=== PATIENT | female | born 1995 | race Caucasian/White ===

== ENCOUNTER 2016-08-01 18:48 | Emergency (ER) | payer OTHER ==
--- NOTE | 2016-08-01 19:29 | ED NURSING NOTES ---
Clinical Report - Nurses [facility] [place] [address] 08/01/2016 18:51 Patient: CARLIE FRIEDMAN TRIAGE Triage time 18:55 Aug 01 2016. Acuity: LEVEL 3. Chief Complaint: PELVIC PAIN and VAGINAL BLEED. 19:02 08/01/16. SEPSIS SCREEN: Sepsis Screen: negative. Negative (no infection suspected/documented). RODRIGO COMA SCORE: Wheelwright Coma Scale: 15- eyes open spontaneously (4); best verbal response- oriented x 4 (5); best motor response- obeys commands (6). --19:02 Stephanie Christianson 18:55 08/01/16. BP: 131/71. HR: 105. RR: 20. O2 saturation: 100% on room air. Temp: 99 F (oral). Pain level now: 5/10. --19:02 Stephanie Christianson. Weight: 40.8 kg stated. Height/Length: 60 inches Per Patient. BMI: 17.6. --19:00 Stephanie Christianson. Medications Depo-Provera Intramuscular. --18:59 Stephanie Christianson. Medication/allergy information source: the patient. --19:02 Stephanie Christianson. Allergies No Known Drug Allergy. --18:59 Stephanie Christianson. History Arrived by private vehicle. Historian: patient. Accompanied by family. [facility] ( Patient reports pelvic pain and cramping for three days. She states it got worse today. She reports some spotting that started pink and now is a dark brown blood. She reports use of the depo provera shot but states she has never had spotting like this in the past.). 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 PAST MEDICAL HX: Immunizations: up-to-date. Last normal menstrual period- off and on periods between lapses in depo shot. Uses depo injections. SOCIAL HX: Light tobacco smoker (cigarette)- less than 1/2 a pack per day. History of drug use: marijuana. No alcohol use. No infectious disease exposure. ABUSE ASSESSMENT: No report of abuse. SELF HARM ASSESSMENT: A self harm assessment was performed. The patient answered "no" to the question "Have you recently felt down, depressed, or hopeless?", "Have you noticed less interest or pleasure in doing things?", "Do you have thoughts of harming or killing yourself?", "Are you here because you tried to hurt yourself?", "Have you ever tried to hurt yourself before today?", "Have you recently had thoughts about harming or killing others?" and "Do you have any dangerous items in your possession?". FALL RISK ASSESSMENT: Fall risk assessment completed. No fall risk identified. NUTRITIONAL RISK ASSESSMENT: The nutritional risk assessment revealed no deficiencies. FUNCTIONAL ASSESSMENT: Functional assessment: no impairments noted. LEARNING NEEDS ASSESSMENT: The learning needs assessment revealed no barriers. SKIN INTEGRITY ASSESSMENT: Skin integrity risk assessment completed. No skin integrity risk identified. --19:02 Stephanie Christianson. PROBLEMS: Vaginal Bleeding. Asthma. --18:59 Stephanie Christianson. ADDITIONAL SURGERIES: no known surgeries. Interventions ID band on patient. To treatment room. --19:02 Stephanie Christianson. PHYSICAL ASSESSMENT 19:02 08/01/16. Ambulatory to room. GENERAL / NEURO / PSYCH: Alert. Oriented X 4. Appears in no acute distress. HEENT: Mucous membranes are pink. RESPIRATORY: Respirations not labored. CVS: Cardiac rhythm: sinus tachycardia; (105). GI / : Abdomen soft. Abdominal tenderness in the left lower quadrant and lower abdomen. Scant vaginal bleeding present. SKIN: Skin is warm and dry. --19:02 Stephanie Christianson. NURSING PROGRESS NOTES Pulse oximeter and NIBP monitor placed on patient; monitor alarms on. Patient gowned. Warming measures: blanket applied. Reassurance given to the patient. Two patient identifiers checked. Call light placed in reach. Side rails up x 1. Bed placed in lowest position. Brakes of bed on. Patient ready for evaluation- chart flagged and ED physician notified. --19:03 Stephanie Christianson 19:03 08/01/2016 Site #1 started via IV in the right antecubital space with an 20g angiocath, with aseptic technique and good blood return; one attempt. Blood drawn: rainbow set. Labeled in the presence of the patient and sent to the lab. Saline lock flushed with 10 mL saline. --19:03 Stephanie Christianson Patient ID band checked for patient name and birthdate: patient confirmed. Instructions provided to collect clean catch urine and patient verbalized understanding. Clean catch urine collected with return of yellow-colored clear urine; sample sent to lab for urinalysis, culture and HCG. Specimen labeled in the presence of the patient. --19:10 Stephanie Christianson PELVIC EXAM: Pelvic exam performed by PA. Assisted by one nurse. Preparation: pelvic tray; patient placed in lithotomy position. Procedure: speculum and bimanual exam. Light amount of vaginal bleeding noted. Specimens collected and sent to lab: GC and chlamydia. Status post-procedure: she was stable. Total time of assist / procedure: 15 minutes. --19:40 Stephanie Christianson. DISPOSITION / DISCHARGE 19:45. No learning barriers present. Discharge instructions provided and reviewed with the patient. Reviewed medication(s) side effects, precautions, dosing and course information. Prescription(s) given to the patient. Patient verbalized understanding. Written instructions provided in Fijian. The patient was discharged home and accompanied by spouse. She left the Emergency Department ambulatory and via private vehicle. Spouse driving. Medication list reviewed and validated. --19:56 Mya Yoo R.N. 19:52 08/01/16. BP: 104/53. HR: 72. RR: 18. O2 saturation: 100%. Temp: deferred. Pain level now: 06/18. 18:55 08/01/16. BP: 131/71. HR: 105. RR: 20. O2 saturation: 100% on room air. Temp: 99 F (oral). Pain level now: 08/18. --19:56 Mya Yoo R.N. Locked/Released at 08/01/2016 19:56 by Mya Yoo R.N.
--- NOTE | 2016-08-01 19:29 | ED CLINICAL REPORT ---
Clinical Report - Physicians/Mid Levels [facility] [address] [place] [address] 08/01/2016 18:51 Patient: CARLIE FRIEDMAN Time Seen: 19:03; initial patient contact. Arrived- By private vehicle. Historian- patient. HISTORY OF PRESENT ILLNESS Chief Complaint: PELVIC PAIN and VAGINAL BLEEDING. (Patient reports pelvic pain and cramping for three days. She states it got worse today. She reports some spotting that started pink and now is a dark brown blood. She reports use of the depo provera shot but states she has never had spotting like this in the past.). prior to the depo, she had the nexplanon for 2+ years and just had it removed and the shot given a few weeks ago.). Still present. The symptoms are described as mild. The patient has had mild left-sided pelvic pain (2 days ago). She has had abnormal bleeding. No vaginal pain, pain with urination, urinary frequency, urgency of urination or hematuria. She has had irregular periods. Sexually active. control measures utilized (depo). Similar symptoms previously: None. Recent medical care: Not recently seen/assessed. REVIEW OF SYSTEMS No nausea, vomiting or diarrhea. All systems otherwise negative, except as recorded above. PAST HISTORY See nurses notes. Additional Surgeries: no known surgeries. Medications: Depo-Provera Intramuscular. Allergies: No Known Drug Allergy. SOCIAL HISTORY Light tobacco smoker (cigarette)- less than 1/2 a pack per day. History of drug use: marijuana. No alcohol use. FAMILY HISTORY Negative. ADDITIONAL NOTES The nursing notes have been reviewed with agreement regarding the chief complaint, HPI, ROS, PMH and patient medications and allergies. PHYSICAL EXAM Vital Signs: 08/01/2016 19:52 BP: 104/53. HR: 72. RR: 18. O2 saturation: 100%. Pain level now: 06/18. 08/01/2016 18:55 BP: 131/71. HR: 105. RR: 20. O2 saturation: 100%. Temp: 99 F. Pain level now: 08/18. Have been reviewed. Appearance: Alert. Oriented X3. No acute distress. Neck: Neck supple. CVS: Heart sounds normal. Respiratory: No respiratory distress. Breath sounds normal. Abdomen: Soft and nontender. Bowel sounds normal. No organomegaly. No mass. Back: No CVA tenderness. : External inspection normal. Speculum exam normal. Slight vaginal bleeding, consisting of dark blood, via the cervical os. No cervical dilation. No tissue present. Bimanual exam normal. No tenderness present on bimanual exam. No uterine tenderness. No tenderness with movement of the cervix. No adnexal mass/fullness. Extremities: No lower extremity edema. LABS, X-RAYS, AND EKG Laboratory Tests: Urine: (WALLY: 08/01/2016 19:10) ( [facility] [place] [place]:23[place] Final results Test Result Flag Units (Reference) URINE NEGATIVE CBC w Diff: (WALLY: 08/01/2016 19:05) ( [facility] [place] 08/01/[place] 19:19) Final results Test Result Flag Units (Reference) WHITE BLOOD COUNT 11.9 H K/uL (4.5-11.5) RED BLOOD COUNT 3.79 L M/uL (4.00-5.20) HEMOGLOBIN 12.6 gm/dL (12.0-16.0) HEMATOCRIT 37.2 % (36.0-46.0) MEAN CELL VOLUME 98 fL (80-100) MEAN CORPUSCULAR HGB 33 pg (26-34) MEAN CORPUSCULAR HGB CONC 34 g/dL (31-37) RED CELL DISTRIBUTION WIDTH 12.0 % (11.6-14.8) PLATELET COUNT 226 K/uL (150-400) NEUTROPHIL % 71.1 % (50-75) LYMPH % 24.4 L % (25-40) MONO % 3.8 % (3-14) EOSINOPHIL % 0.3 % (0-4) BASOPHIL % 0.4 % (0-2) . PROGRESS AND PROCEDURES Course of Care: Patient is stable. Symptoms better. CLINICAL IMPRESSION Mild dysfunctional uterine bleeding. INSTRUCTIONS No restrictions to activity. Drink plenty of fluids. No sexual contact today. Warnings: Further evaluation is necessary. It is very important to follow up with a physician. GENERAL WARNINGS: Return or contact your physician immediately if your condition worsens or changes unexpectedly, if not improving as expected, or if other problems arise. Your Current Medications: CONTINUE TAKING THE FOLLOWING MEDICATIONS: Depo-Provera Intramuscular. Prescription Medications: Motrin 600 mg tablets: take 1 tablet orally every 8 hours as needed for pain. Dispense twenty (20). No refill. Substitution is permissible. Follow-up: Call your doctor in 3 days for results of cultures. Follow up with your doctor if not better. Understanding of the discharge instructions verbalized by patient. (Electronically signed by Yessenia Segura PA-C 08/01/2016 20:11)
--- NOTE | 2016-08-01 19:29 | ED ORDER SUMMARY ---
..... Patient: CARLIE FRIEDMAN OrderSheet [facility] VisitID: [id number] [place] [address] 20y, F Registration Date/Time: 08/01/2016 ORDER SHEET Weight: 40.8 kg (stated) Allergies: No Known Drug Allergy GENERAL ORDERS: Urine Urgent (19:03 08/01/2016 Nissa BOWENS) (Ack 19:09 IJurca ER Tech1) (Sent 19:10 IJurca ER Tech1) (19:18 TLewis R.N.) CBC w Diff Urgent (19:03 08/01/2016 Nissa BOWENS) (Ack 19:09 IJurca ER Tech1) (Sent 19:10 IJurca ER Tech1) (19:18 TLewis R.N.) Culture, Genital (Cervix) Urgent (19:28 08/01/2016 Nissa BOWENS) (Ack 19:41 IJurca ER Tech1) (Sent 19:41 IJurca ER Tech1) (19:44 ALawrence ER Tech1) GC/Chlamydia (Cervix) (swab) Urgent (19:28 08/01/2016 Nissa BOWENS) (Ack 19:41 IJurca ER Tech1) (Sent 19:41 IJurca ER Tech1) (19:44 ALawrence ER Tech1) MEDICATION ORDERS: IV FLUIDS: ORDER SHEET NOTES: [Electronically signed by Mya Yoo R.N. (19:56 08/01/2016)] [Electronically signed by Yessenia Segura PA-C (20:11 08/01/2016)] [Electronically locked/signed by Mya Yoo R.N. (19:56 08/01/2016)]
--- NOTE | 2016-08-01 19:29 | ED CLINICAL REPORT ---
Clinical Report - Physicians/Mid Levels [facility] [address] [place] [address] 08/01/2016 18:51 Patient: CARLIE FRIEDMAN Time Seen: 19:03; initial patient contact. Arrived- By private vehicle. Historian- patient. HISTORY OF PRESENT ILLNESS Chief Complaint: PELVIC PAIN and VAGINAL BLEEDING. (Patient reports pelvic pain and cramping for three days. She states it got worse today. She reports some spotting that started pink and now is a dark brown blood. She reports use of the depo provera shot but states she has never had spotting like this in the past.). prior to the depo, she had the nexplanon for 2+ years and just had it removed and the shot given a few weeks ago.). Still present. The symptoms are described as mild. The patient has had mild left-sided pelvic pain (2 days ago). She has had abnormal bleeding. No vaginal pain, pain with urination, urinary frequency, urgency of urination or hematuria. She has had irregular periods. Sexually active. control measures utilized (depo). Similar symptoms previously: None. Recent medical care: Not recently seen/assessed. REVIEW OF SYSTEMS No nausea, vomiting or diarrhea. All systems otherwise negative, except as recorded above. PAST HISTORY See nurses notes. Additional Surgeries: no known surgeries. Medications: Depo-Provera Intramuscular. Allergies: No Known Drug Allergy. SOCIAL HISTORY Light tobacco smoker (cigarette)- less than 1/2 a pack per day. History of drug use: marijuana. No alcohol use. FAMILY HISTORY Negative. ADDITIONAL NOTES The nursing notes have been reviewed with agreement regarding the chief complaint, HPI, ROS, PMH and patient medications and allergies. PHYSICAL EXAM Vital Signs: 08/01/2016 19:52 BP: 104/53. HR: 72. RR: 18. O2 saturation: 100%. Pain level now: 06/18. 08/01/2016 18:55 BP: 131/71. HR: 105. RR: 20. O2 saturation: 100%. Temp: 99 F. Pain level now: 08/18. Have been reviewed. Appearance: Alert. Oriented X3. No acute distress. Neck: Neck supple. CVS: Heart sounds normal. Respiratory: No respiratory distress. Breath sounds normal. Abdomen: Soft and nontender. Bowel sounds normal. No organomegaly. No mass. Back: No CVA tenderness. : External inspection normal. Speculum exam normal. Slight vaginal bleeding, consisting of dark blood, via the cervical os. No cervical dilation. No tissue present. Bimanual exam normal. No tenderness present on bimanual exam. No uterine tenderness. No tenderness with movement of the cervix. No adnexal mass/fullness. Extremities: No lower extremity edema. LABS, X-RAYS, AND EKG Laboratory Tests: Urine: (WALLY: 08/01/2016 19:10) ( [facility] [place] [place] 19:23[facility] Final results Test Result Flag Units (Reference) URINE NEGATIVE CBC w Diff: (WALLY: 08/01/2016 19:05) ( [facility] [place] 08/01/2016 19:19) Final results Test Result Flag Units (Reference) WHITE BLOOD COUNT 11.9 H K/uL (4.5-11.5) RED BLOOD COUNT 3.79 L M/uL (4.00-5.20) HEMOGLOBIN 12.6 gm/dL (12.0-16.0) HEMATOCRIT 37.2 % (36.0-46.0) MEAN CELL VOLUME 98 fL (80-100) MEAN CORPUSCULAR HGB 33 pg (26-34) MEAN CORPUSCULAR HGB CONC 34 g/dL (31-37) RED CELL DISTRIBUTION WIDTH 12.0 % (11.6-14.8) PLATELET COUNT 226 K/uL (150-400) NEUTROPHIL % 71.1 % (50-75) LYMPH % 24.4 L % (25-40) MONO % 3.8 % (3-14) EOSINOPHIL % 0.3 % (0-4) BASOPHIL % 0.4 % (0-2) . PROGRESS AND PROCEDURES Course of Care: Patient is stable. Symptoms better. CLINICAL IMPRESSION Mild dysfunctional uterine bleeding. INSTRUCTIONS No restrictions to activity. Drink plenty of fluids. No sexual contact today. Warnings: Further evaluation is necessary. It is very important to follow up with a physician. GENERAL WARNINGS: Return or contact your physician immediately if your condition worsens or changes unexpectedly, if not improving as expected, or if other problems arise. Your Current Medications: CONTINUE TAKING THE FOLLOWING MEDICATIONS: Depo-Provera Intramuscular. Prescription Medications: Motrin 600 mg tablets: take 1 tablet orally every 8 hours as needed for pain. Dispense twenty (20). No refill. Substitution is permissible. Follow-up: Call your doctor in 3 days for results of cultures. Follow up with your doctor if not better. Understanding of the discharge instructions verbalized by patient. (Electronically signed by Yessenia Segura PA-C 08/01/2016 20:11)
--- NOTE | 2016-08-01 19:29 | ED ORDER SUMMARY ---
..... Patient: CARLIE FRIEDMAN OrderSheet [facility] VisitID: [id number] [place] [address] 20y, F Registration Date/Time: 08/01/2016 ORDER SHEET Weight: 40.8 kg (stated) Allergies: No Known Drug Allergy GENERAL ORDERS: Urine Urgent (19:03 08/01/2016 Nissa BOWENS) (Ack 19:09 IJurca ER Tech1) (Sent 19:10 IJurca ER Tech1) (19:18 TLewis R.N.) CBC w Diff Urgent (19:03 08/01/2016 Nissa BOWENS) (Ack 19:09 IJurca ER Tech1) (Sent 19:10 IJurca ER Tech1) (19:18 TLewis R.N.) Culture, Genital (Cervix) Urgent (19:28 08/01/2016 Nissa BOWENS) (Ack 19:41 IJurca ER Tech1) (Sent 19:41 IJurca ER Tech1) (19:44 ALawrence ER Tech1) GC/Chlamydia (Cervix) (swab) Urgent (19:28 08/01/2016 Nissa BOWENS) (Ack 19:41 IJurca ER Tech1) (Sent 19:41 IJurca ER Tech1) (19:44 ALawrence ER Tech1) MEDICATION ORDERS: IV FLUIDS: ORDER SHEET NOTES: [Electronically signed by Mya Yoo R.N. (19:56 08/01/2016)] [Electronically signed by Yessenia Segura PA-C (20:11 08/01/2016)] [Electronically locked/signed by Mya Yoo R.N. (19:56 08/01/2016)]
--- NOTE | 2016-08-01 20:11 | ED DISCHARGE INSTRUCTIONS ---
Patient: CARLIE FRIEDMAN General Instructions [facility] VisitID: [id number] [place] [address] 20y, F Registration Date/Time: 08/01/2016 Mild dysfunctional uterine bleeding. INSTRUCTIONS No restrictions to activity. Drink plenty of fluids. No sexual contact today. Warnings: Further evaluation is necessary. It is very important to follow up with a physician. GENERAL WARNINGS: Return or contact your physician immediately if your condition worsens or changes unexpectedly, if not improving as expected, or if other problems arise. Your Current Medications: CONTINUE TAKING THE FOLLOWING MEDICATIONS: Depo-Provera Intramuscular. Prescription Medications: Motrin 600 mg tablets: take 1 tablet orally every 8 hours as needed for pain. Dispense twenty (20). No refill. Substitution is permissible. Follow-up: Call your doctor in 3 days for results of cultures. Follow up with your doctor if not better. Understanding of the discharge instructions verbalized by patient. ADDITIONAL INFORMATION Painful Menstrual Periods The uterus is a muscle and contracts normally during the menstrual cycle. The contraction pushes out the build-up of tissue that occurs each month inside the uterus. If the contraction is very strong, it can cause pain because the muscle is not getting enough oxygen for the amount of work it is doing. Pain with menstruation is called dysmenorrhea. The pain may feel like a dull ache or throbbing in the lower abdomen. It may spread to your lower back or inner thighs. In severe cases there may also be nausea, vomiting, loose stools, sweating or dizziness. There are two types of dysmenorrhea: Primary Dysmenorrhea (common menstrual cramps) usually appears within one or two years after you start your periods. It usually gets better or goes away as you get older or when you have a baby. The menstrual cramps usually start just before, or on the day of your period, and last 1-3 days. Treatment is with comfort measures and anti-inflammatory drugs as described below (see Home Care). If your pain is not controlled with these measures, your doctor may prescribe control pills. This will reduce the pain of each period. Secondary Dysmenorrhea starts later in life. The pain begins earlier in the menstrual cycle and lasts longer than common menstrual cramps. It is caused by a specific problem with the pelvic organs, such as: PID (pelvic inflammatory disease) -- an infection in the fallopian tubes Fibroids benign tumors within the wall of the uterus (not cancer) Endometriosis the tissue that lines the uterus spreads outside the uterus and grows there. This tissue swells and bleeds each month, just like the tissue in your uterus, and causes pain. IUD use -- especially in the first few months after placement Once the cause of secondary dysmenorrhea is found, it can be treated. Home Care: Most women with common menstrual cramping (primary dysmenorrhea) can remain active throughout their period. Many women find that regular exercise each werek reduces menstrual pain. If cramping is severe, rest in bed with a heating pad on the lower abdomen or lower back. A hot bath or massage to the lower back and abdomen may also give relief. Smoking can make symptoms worse. If you smoke, ask your doctor for help with a stop-smoking plan. Avoid caffeine and alcohol around the time of your period since these can make symptoms worse. Anti-inflammatory medicine such as aspirin, ibuprofen (Advil, Motrin) or naproxen (Aleve, Naprosyn) can be very helpful, especially if taken at the very first signs of bleeding or cramping . Acetaminophen (Tylenol) is not as effective for this problem. [NOTE: If you have chronic liver or kidney disease or ever had a stomach ulcer or GI bleeding, talk with your doctor before using these medicines.] If your pain is not controlled by the above measures, a prescription pain medicine may be required for a short time. Discuss this with your doctor. Follow Up with your doctor as advised. If you have just started menstruating in the past 1-2 years, and your pain is mild to moderate, your symptoms are most likely not a cause for concern. However, if menstrual cramps are severe enough to interfere with your daily activities, last longer than a few days, or if you are older and just started having menstrual pain, it is important to see your doctor for further evaluation. Get Prompt Medical Attention if any of the following occur: Fever over 100.4F (38.0C) with pelvic pain Uncontrolled menstrual pain or pain that lasts longer than usual or occurs between periods Unusual vaginal discharge between periods Heavy vaginal bleeding (soaking more than one pad an hour for three hours) Passage of pink or pichardo tissue from the vagina If you use tampons, watch for the following signs of Toxic Shock Syndrome and return at once: Fever over 102.0F (38.9C), with or without pelvic pain Vomiting, diarrhea Dizziness, weakness or fainting Rash that looks like a bad sunburn Irregular Vaginal Bleeding This is a condition in which bleeding occurs at unexpected times of the month. The bleeding may be heavier or treatment technician than usual. Heavy bleeding may lead to anemia. If severe enough, anemia may cause you to look pale and feel weak or fatigued. You might have shortness of breath even with little exertion. The female hormones produced in your body every month may be out of balance. This imbalance leads to bleeding. Causes could include an ovarian cyst, emotional stress, pelvic infection. Failure to ovulate during your last cycle may also cause this problem. Home Care: If bleeding is heavy, rest and avoid heavy exertion. You may use acetaminophen (Tylenol) or ibuprofen (Motrin, Advil) to control pain, unless another pain medicine was prescribed. [NOTE: If you have chronic liver or kidney disease or ever had a stomach ulcer or GI bleeding, talk with your doctor before using these medicines.] Iron supplements may be prescribed for anemia. It takes about 4-6 weeks for the iron to correct the anemia. Take the medicine as directed. See your doctor for a repeat blood test after you finish the iron treatment. If hormones were prescribed to control your bleeding, take them exactly as directed. If you were prescribed a medicine called Provera (medroxyprogesterone), the bleeding should stop while you are taking it. Another period will start a few days after you finish the medicine. Follow Up with your doctor, or as advised, within the next 1-2 days if heavy bleeding continues. Otherwise, follow up within the next 1-2 weeks. Get Prompt Medical Attention if any of the following occur: Bleeding becomes heavy (soaking one pad an hour for three hours) Fever of 100.4F (38C) or higher, or as directed by your healthcare provider Increase in abdominal pain Weakness, dizziness or fainting You have been given the following additional information: Dysmenorrhea Dysfunctional Uterine Bleeding No restrictions to activity. (Electronically signed by Yessenia Segura PA-C 08/01/2016 20:11)
--- NOTE | 2016-08-01 20:11 | ED MAR SUMMARY ---
..... Medication Administration Record [facility] [address] [place], [place] [id number] Patient: CARLIE FRIEDMAN Visit ID: [id number] 20y, F Weight: 40.8 kg Height/Length: 60 in BMI: 17.6 ALLERGIES: No Known Drug Allergy
--- NOTE | 2016-08-01 20:11 | ED MAR SUMMARY ---
..... Medication Administration Record [facility] [address] [place], [place] [id number] Patient: CARLIE FRIEDMAN Visit ID: [id number] 20y, F Weight: 40.8 kg Height/Length: 60 in BMI: 17.6 ALLERGIES: No Known Drug Allergy
--- NOTE | 2016-08-01 20:11 | ED MED RECONCILIATION SUMMARY ---
Patient: CARLIE FRIEDMAN Medication Reconciliation Report [facility] VisitID: [id number] [place] [address] 20y, F Registration Date/Time: 08/01/2016 Weight: 40.8 kg Height/Length: 60 in. BMI: 17.6 ALLERGIES: No Known Drug Allergy The patient's Home Medications are listed below: CONTINUE TAKING THE FOLLOWING MEDICATIONS: Depo-Provera Intramuscular The source(s) of the original Home Medication information: patient The following Medications were given to the patient in the Emergency Department: None. The following Medications were prescribed to the patient: Motrin 600 mg tablets: take 1 tablet orally every 8 hours as needed for pain. Dispense twenty (20). No refill. Substitution is permissible. -- Yessenia Segura PA-C
--- NOTE | 2016-08-01 20:11 | ED MED RECONCILIATION SUMMARY ---
Patient: CARLIE FRIEDMAN Medication Reconciliation Report [facility] VisitID: [id number] [place] [address] 20y, F Registration Date/Time: 08/01/2016 Weight: 40.8 kg Height/Length: 60 in. BMI: 17.6 ALLERGIES: No Known Drug Allergy The patient's Home Medications are listed below: CONTINUE TAKING THE FOLLOWING MEDICATIONS: Depo-Provera Intramuscular The source(s) of the original Home Medication information: patient The following Medications were given to the patient in the Emergency Department: None. The following Medications were prescribed to the patient: Motrin 600 mg tablets: take 1 tablet orally every 8 hours as needed for pain. Dispense twenty (20). No refill. Substitution is permissible. -- Yessenia Segura PA-C
== END 2016-08-01 19:45 | disposition home or self-care (01) ==
LOC: ED SRH 18:48
DX: N93.9 Abnormal uterine and vaginal bleeding, unspecified (principal); F17.210 Nicotine dependence, cigarettes, uncomplicated
CPT/HCPCS: 90066; 90309; 91227; 91228; 93070; 95059

== ENCOUNTER 2016-08-13 21:50 | Emergency (ER) | payer OTHER ==
--- NOTE | 2016-08-13 22:55 | DIAGNOSTIC IMAGING REPORT ---
PROCEDURE: XR HAND 3 OR 4 VIEWS - LEFT INDICATION: TRAUMA/INJURY TECHNIQUE: Four views of the left hand. COMPARISON: None. FINDINGS: Normal mineralization. No fractures. Normal osseous alignment. No suspicious soft-tissue calcification or radiodense foreign bodies. IMPRESSION: 1. Intact left hand.
--- NOTE | 2016-08-13 23:15 | ED CLINICAL REPORT ---
Clinical Report - Physicians/Mid Levels [facility] [address] [place] [address] 08/13/2016 21:51 Patient: CARLIE FRIEDMAN Time Seen: 22:00; upon arrival, initial patient contact, initial documentation, patient care assumed. Arrived- By private vehicle. Historian- patient. HISTORY OF PRESENT ILLNESS Chief Complaint: Injury to the left hand. The injury happened about 2 days ago. Occurred at a neighbor's house. ( wrestling around with friend). Patient is experiencing mild pain. Patient denies injury to the head or neck. No other injury. REVIEW OF SYSTEMS The patient has had swelling. No tingling, numbness, weakness, foreign body or skin laceration. All systems otherwise negative, except as recorded above. PAST HISTORY See nurses notes. PROBLEMS: Hand lt injury . Vaginal Bleeding. Asthma. --21:59 Mya Yoo R.N. ADDITIONAL SURGERIES: no known surgeries. The patient's dominant hand is the right. SOCIAL HISTORY Light tobacco smoker. No alcohol use or drug use. No recent travel. Is a local resident. FAMILY HISTORY No significant family medical history. ADDITIONAL NOTES The nursing notes have been reviewed with agreement regarding the chief complaint, HPI, ROS, PMH and patient medications and allergies. PHYSICAL EXAM Vital Signs: 08/13/2016 21:55 BP: 113/80. HR: 80. RR: 16. O2 saturation: 100%. Temp: 98.3 F. Pain level now: 110. Have been reviewed as normal and appear to be correct. Appearance: Alert. Oriented X3. No acute distress. Head: Head atraumatic. Eyes: Pupils equal, round and reactive to light. Eyes normal inspection. Respiratory: No respiratory distress. Skin: Skin warm and dry. Skin intact. Extremities: Hand injury present. Dorsal left hand: severe tenderness, mild swelling and medium sized ecchymosis of the central aspect of the dorsal hand. Neurovascular intact distally. (swelling, tenderness, and contusion over 2&3 metacarpal area). No erythema, laceration, abrasion, puncture wound or foreign body. No deformity. No limitation of extension. No wrist injury. Hand and wrist exam otherwise negative. Extremities otherwise negative. Neuro, Vascular and Tendons: Vascular status intact. Sensation intact. Motor intact. Tendon function intact. Neuro: Oriented X 3. No motor deficit. No sensory deficit. Note: isolated injury to hand. LABS, X-RAYS, AND EKG X-Rays: Left hand negative. Lt Hand X-ray: (IMPRESSION: 1. Intact left hand. Electronically Final signed by:Karen Disla MD 08/13/2016 10:55:17 PM). PROGRESS AND PROCEDURES Patient counseled in person regarding the patient's stable condition, test results and diagnosis. 2305. Differential Diagnosis: Other possible considerations: hand fx vs contusion. Above considerations are based on history, physical exam, reassessment and X-Ray data. Differential diagnosis was discussed with patient. Disposition: Discharged home in good and unchanged condition (23:14). Condition: good and stable. CLINICAL IMPRESSION Single contusion with soft tissue hematoma to the left hand.No skin abrasion. INSTRUCTIONS Warnings: GENERAL WARNINGS: Return or contact your physician immediately if your condition worsens or changes unexpectedly, if not improving as expected, or if other problems arise. Specifically return if problem worsens. Prescription Medications: Naproxen 500 mg tablets: take 1 orally every 12 hours as needed for pain. Dispense twenty (20). No refills. Follow-up: Follow up with your doctor in about one week as needed. Call for an appointment. Summary of care provided to patient. Understanding of the discharge instructions verbalized by patient. (Electronically signed by Yvette Pederson A.R.N.P. 08/14/2016 12:10)
--- NOTE | 2016-08-13 23:15 | ED NURSING NOTES ---
Clinical Report - Nurses [facility] [place] [address] 08/13/2016 21:51 Patient: CARLIE FRIEDMAN TRIAGE Triage time 21:55. Acuity: LEVEL 4. Chief Complaint: INJURY TO LEFT HAND. INJURY TO THE LEFT HAND. Alert. No acute distress. --22:02 Mya Yoo R.N. 21:55 08/13/16. BP: 113/80. HR: 80. RR: 16. O2 saturation: 100%. Temp: 98.3 F. Pain level now: 10. Additional comments: pain up to 10 with movement. --22:02 Mya Yoo R.N. 21:55 08/13/16. BP: 113/80. HR: 80. RR: 16. O2 saturation: 100%. Temp: 98.3 F. Pain level now: 110. Additional comments: pain up to 10 with movement. --22:03 Mya Yoo R.N. Weight: 40.8 kg stated. Height/Length: 60 inches Per Patient. BMI: 17.6. --22:00 Mya Yoo R.N. Medications None. --21:58 Mya Yoo R.N. Medication/allergy information source: the patient. --22:02 Mya Yoo R.N. Allergies No Known Drug Allergy. --21:58 Mya Yoo R.N. History Arrived by private vehicle. Historian: patient. This occurred (2 days ago). Occurred at neighbor's house. ( "While wrestling with friends). No numbness. 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 PAST MEDICAL HX: Tetanus status: more than 5 years ago. Last normal menstrual period was 1 week ago. Uses depo injections. SOCIAL HX: Light tobacco smoker (cigarette)- less than 1/2 a pack per day. No alcohol use or drug use. FALL RISK ASSESSMENT: Fall risk assessment completed. No fall risk identified. NUTRITIONAL RISK ASSESSMENT: The nutritional risk assessment revealed no deficiencies. FUNCTIONAL ASSESSMENT: Functional assessment: no impairments noted. LEARNING NEEDS ASSESSMENT: The learning needs assessment revealed no barriers. SKIN INTEGRITY ASSESSMENT: Skin integrity risk assessment completed. No skin integrity risk identified. --22:02 Mya Yoo R.N. PROBLEMS: Hand lt injury . Vaginal Bleeding. Asthma. --21:59 Mya Yoo R.N. ADDITIONAL SURGERIES: no known surgeries. Interventions ID band on patient. To room. --22:02 Mya Yoo R.N. PHYSICAL ASSESSMENT Ambulatory to room. GENERAL / NEURO / PSYCH: Oriented X 4. Alert. Appears in no acute distress. Appears in pain and anxious. EXTREMITIES: Limited ROM present. Left hand: tenderness and ecchymosis. SKIN: Skin intact. Skin is warm and dry. --22:03 Mya Yoo R.N. NURSING PROGRESS NOTES Cold pack applied. Extremity elevated. Two patient identifiers checked. Call light placed in reach. Side rails up x 2. Bed placed in lowest position. Brakes of bed on. Patient ready for evaluation. --22:04 Mya Yoo R.N. DISPOSITION / DISCHARGE Departure time: 2315. Condition at departure: unchanged and stable. No learning barriers present. Discharge instructions provided and reviewed with the patient. Reviewed medication(s) side effects, precautions, dosing and course information. Prescription(s) given to the patient. Patient verbalized understanding. Written instructions provided in Khmer. The patient was discharged home and unaccompanied at time of discharge. She left the Emergency Department ambulatory and via private vehicle. Patient driving. --23:21 Diann Kumar R.N. 23:19 08/13/16. BP: 96/62 taken on the right arm, while lying. HR: 83 (regular and normal rate). RR: 18 (regular and unlabored). O2 saturation: 96% on room air. Temp: deferred. Pain level now: 06/18. --23:21 Diann Kumar R.N. Locked/Released at 08/13/2016 23:21 by Diann Kumar R.N.
--- NOTE | 2016-08-13 23:15 | ED NURSING NOTES ---
Clinical Report - Nurses [facility] [place] [address] 08/13/2016 21:51 Patient: CARLIE FRIEDMAN TRIAGE Triage time 21:55. Acuity: LEVEL 4. Chief Complaint: INJURY TO LEFT HAND. INJURY TO THE LEFT HAND. Alert. No acute distress. --22:02 Mya Yoo R.N. 21:55 08/13/16. BP: 113/80. HR: 80. RR: 16. O2 saturation: 100%. Temp: 98.3 F. Pain level now: 10. Additional comments: pain up to 10 with movement. --22:02 Mya Yoo R.N. 21:55 08/13/16. BP: 113/80. HR: 80. RR: 16. O2 saturation: 100%. Temp: 98.3 F. Pain level now: 110. Additional comments: pain up to 10 with movement. --22:03 Mya Yoo R.N. Weight: 40.8 kg stated. Height/Length: 60 inches Per Patient. BMI: 17.6. --22:00 Mya Yoo R.N. Medications None. --21:58 Mya Yoo R.N. Medication/allergy information source: the patient. --22:02 Mya Yoo R.N. Allergies No Known Drug Allergy. --21:58 Mya Yoo R.N. History Arrived by private vehicle. Historian: patient. This occurred (2 days ago). Occurred at neighbor's house. ( "While wrestling with friends). No numbness. 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 PAST MEDICAL HX: Tetanus status: more than 5 years ago. Last normal menstrual period was 1 week ago. Uses depo injections. SOCIAL HX: Light tobacco smoker (cigarette)- less than 1/2 a pack per day. No alcohol use or drug use. FALL RISK ASSESSMENT: Fall risk assessment completed. No fall risk identified. NUTRITIONAL RISK ASSESSMENT: The nutritional risk assessment revealed no deficiencies. FUNCTIONAL ASSESSMENT: Functional assessment: no impairments noted. LEARNING NEEDS ASSESSMENT: The learning needs assessment revealed no barriers. SKIN INTEGRITY ASSESSMENT: Skin integrity risk assessment completed. No skin integrity risk identified. --22:02 Mya Yoo R.N. PROBLEMS: Hand lt injury . Vaginal Bleeding. Asthma. --21:59 Mya Yoo R.N. ADDITIONAL SURGERIES: no known surgeries. Interventions ID band on patient. To room. --22:02 Mya Yoo R.N. PHYSICAL ASSESSMENT Ambulatory to room. GENERAL / NEURO / PSYCH: Oriented X 4. Alert. Appears in no acute distress. Appears in pain and anxious. EXTREMITIES: Limited ROM present. Left hand: tenderness and ecchymosis. SKIN: Skin intact. Skin is warm and dry. --22:03 Mya Yoo R.N. NURSING PROGRESS NOTES Cold pack applied. Extremity elevated. Two patient identifiers checked. Call light placed in reach. Side rails up x 2. Bed placed in lowest position. Brakes of bed on. Patient ready for evaluation. --22:04 Mya Yoo R.N. DISPOSITION / DISCHARGE Departure time: 2315. Condition at departure: unchanged and stable. No learning barriers present. Discharge instructions provided and reviewed with the patient. Reviewed medication(s) side effects, precautions, dosing and course information. Prescription(s) given to the patient. Patient verbalized understanding. Written instructions provided in Turkmen. The patient was discharged home and unaccompanied at time of discharge. She left the Emergency Department ambulatory and via private vehicle. Patient driving. --23:21 Diann Kumar R.N. 23:19 08/13/16. BP: 96/62 taken on the right arm, while lying. HR: 83 (regular and normal rate). RR: 18 (regular and unlabored). O2 saturation: 96% on room air. Temp: deferred. Pain level now: 06/18. --23:21 Diann Kumar R.N. Locked/Released at 08/13/2016 23:21 by Diann Kumar R.N.
--- NOTE | 2016-08-13 23:15 | ED ORDER SUMMARY ---
..... Patient: CARLIE FRIEDMAN OrderSheet [facility] VisitID: [id number] [address] [place] [address] 20y, F Registration Date/Time: 08/13/2016 ORDER SHEET Weight: 40.8 kg (stated) Allergies: No Known Drug Allergy GENERAL ORDERS: Hand 3 or 4V Left Urgent (22:03 08/13/2016 HBivenkristie A.R.N.P.) (Ack 22:04 AMcQuoid ER Tech1) (22:43 MCampbell) MEDICATION ORDERS: IV FLUIDS: ORDER SHEET NOTES: [Electronically signed by Diann Kumar R.N. (23:21 08/13/2016)] [Electronically signed by Yvette PedersonR.N.P. (12:10 08/14/2016)] [Electronically locked/signed by Diann Kumar R.N. (23:21 08/13/2016)]
--- NOTE | 2016-08-13 23:15 | ED ORDER SUMMARY ---
..... Patient: CARLIE FRIEDMAN OrderSheet [facility] VisitID: [id number] [address] [place] [address] 20y, F Registration Date/Time: 08/13/2016 ORDER SHEET Weight: 40.8 kg (stated) Allergies: No Known Drug Allergy GENERAL ORDERS: Hand 3 or 4V Left Urgent (22:03 08/13/2016 HBivenkristie A.R.N.P.) (Ack 22:04 AMcQuoid ER Tech1) (22:43 MCampbell) MEDICATION ORDERS: IV FLUIDS: ORDER SHEET NOTES: [Electronically signed by Diann Kumar R.N. (23:21 08/13/2016)] [Electronically signed by Yvette PedersonR.N.P. (12:10 08/14/2016)] [Electronically locked/signed by Diann Kumar R.N. (23:21 08/13/2016)]
--- NOTE | 2016-08-14 12:10 | ED MAR SUMMARY ---
..... Medication Administration Record [facility] [address] [place], [place] [id number] Patient: CARLIE FRIEDMAN Visit ID: [id number] 20y, F Weight: 40.8 kg Height/Length: 60 in BMI: 17.6 ALLERGIES: No Known Drug Allergy
--- NOTE | 2016-08-14 12:10 | ED MED RECONCILIATION SUMMARY ---
Patient: CARLIE FRIEDMAN Medication Reconciliation Report [facility] VisitID: [id number] [address] [place] [address] 20y, F Registration Date/Time: 08/13/2016 Weight: 40.8 kg Height/Length: 60 in. BMI: 17.6 ALLERGIES: No Known Drug Allergy The patient's Home Medications are listed below: NONE. The source(s) of the original Home Medication information: patient The following Medications were given to the patient in the Emergency Department: None. The following Medications were prescribed to the patient: Naproxen 500 mg tablets: take 1 orally every 12 hours as needed for pain. Dispense twenty (20). No refills. -- Yvette Pederson A.R.N.P.
--- NOTE | 2016-08-14 12:10 | ED MAR SUMMARY ---
..... Medication Administration Record [facility] [address] [place], [place] [id number] Patient: CARLIE FRIEDMAN Visit ID: [id number] 20y, F Weight: 40.8 kg Height/Length: 60 in BMI: 17.6 ALLERGIES: No Known Drug Allergy
--- NOTE | 2016-08-14 12:10 | ED MED RECONCILIATION SUMMARY ---
Patient: CARLIE FRIEDMAN Medication Reconciliation Report [facility] VisitID: [id number] [address] [place] [address] 20y, F Registration Date/Time: 08/13/2016 Weight: 40.8 kg Height/Length: 60 in. BMI: 17.6 ALLERGIES: No Known Drug Allergy The patient's Home Medications are listed below: NONE. The source(s) of the original Home Medication information: patient The following Medications were given to the patient in the Emergency Department: None. The following Medications were prescribed to the patient: Naproxen 500 mg tablets: take 1 orally every 12 hours as needed for pain. Dispense twenty (20). No refills. -- Yvette Pederson A.R.N.P.
--- NOTE | 2016-08-14 12:10 | ED DISCHARGE INSTRUCTIONS ---
Patient: CARLIE FRIEDMAN General Instructions [facility] VisitID: [id number] [address] [place] [address] 20y, F Registration Date/Time: 08/13/2016 Single contusion with soft tissue hematoma to the left hand.No skin abrasion. INSTRUCTIONS Warnings: GENERAL WARNINGS: Return or contact your physician immediately if your condition worsens or changes unexpectedly, if not improving as expected, or if other problems arise. Specifically return if problem worsens. Prescription Medications: Naproxen 500 mg tablets: take 1 orally every 12 hours as needed for pain. Dispense twenty (20). No refills. Follow-up: Follow up with your doctor in about one week as needed. Call for an appointment. Summary of care provided to patient. Understanding of the discharge instructions verbalized by patient. ADDITIONAL INFORMATION Contusion,Soft Tissue You have a CONTUSION, which is a bruise with swelling and some bleeding under the skin. There are no broken bones. This injury takes a few days to a few weeks to heal. Home Care: 1) Keep the injured part elevated to reduce pain and swelling. This is especially important during the first 48 hours. 2) Make an ice pack (ice cubes in a plastic bag, wrapped in a towel) and apply for 20 minutes every 1-2 hours the first day. Continue this 3-4 times a day until the pain and swelling goes away. 3) You may use acetaminophen (Tylenol) or ibuprofen (Motrin, Advil) to control pain, unless another pain medicine was prescribed. [ NOTE : If you have chronic liver or kidney disease or ever had a stomach ulcer or GI bleeding, talk with your doctor before using these medicines.] Follow Up with your doctor or this facility if you are not improving within the next THREE days. [NOTE: If X-rays were taken, they will be reviewed by a radiologist. You will be notified of any new findings that may affect your care.] Get Prompt Medical Attention if any of the following occur: -- Pain or swelling increases -- Injured arm or leg becomes cold, blue, numb or tingly -- Redness, warmth or drainage from the skin Contusion: Hand You have a CONTUSION of your hand. This causes local pain, swelling and sometimes bruising. There are no broken bones. This injury takes from a few days to a few weeks to heal. Home Care: 1) Keep your arm elevated to reduce pain and swelling. This is very important during the first 48 hours. 2) Apply an ice pack (ice cubes in a plastic bag, wrapped in a towel) over the injured area for 20 minutes every 1-2 hours the first day. You should continue with ice packs 3-4 times a day for the next two days. Continue the use of ice packs for relief of pain and swelling as needed. 3) You may use acetaminophen (Tylenol) or ibuprofen (Motrin, Advil) to control pain, unless another pain medicine was prescribed. [ NOTE : If you have chronic liver or kidney disease or ever had a stomach ulcer or GI bleeding, talk with your doctor before using these medicines.] Follow Up with your doctor or this facility if you are not starting to improve within the next THREE days. [NOTE: If X-rays were taken, they will be reviewed by a radiologist. You will be notified of any new findings that may affect your care.] Get Prompt Medical Attention if any of the following occur: -- Pain or swelling increases -- Redness, warmth or drainage -- Hand or fingers becomes cold, blue, numb or tingly Naproxen Sodium Oral tablet What is this medicine? NAPROXEN (na PROX en) is a non-steroidal anti-inflammatory drug (NSAID). It is used to reduce swelling and to treat pain. This medicine may be used for dental pain, headache, or painful monthly periods. It is also used for painful joint and muscular problems such as arthritis, tendinitis, bursitis, and gout. How should I use this medicine? Take this medicine by mouth with a glass of water. Follow the directions on the prescription label. Take it with food if your stomach gets upset. Try to not lie down for at least 10 minutes after you take it. Take your medicine at regular intervals. Do not take your medicine more often than directed. Long-term, continuous use may increase the risk of heart attack or stroke. A special MedGuide will be given to you by the pharmacist with each prescription and refill. Be sure to read this information carefully each time. Talk to your art museum aide regarding the use of this medicine in children. Special care may be needed. What side effects may I notice from receiving this medicine? Side effects that you should report to your doctor or health primary care pediatrician as soon as possible: black or bloody stools, blood in the urine or vomit blurred vision chest pain difficulty breathing or wheezing nausea or vomiting severe stomach pain skin rash, skin redness, blistering or peeling skin, hives, or itching slurred speech or weakness on one side of the body swelling of eyelids, throat, lips unexplained weight gain or swelling unusually weak or tired yellowing of eyes or skin Side effects that usually do not require medical attention (report to your doctor or health primary care pediatrician if they continue or are bothersome): constipation headache heartburn What may interact with this medicine? alcohol aspirin cidofovir diuretics lithium methotrexate other drugs for inflammation like ketorolac or prednisone pemetrexed probenecid warfarin What if I miss a dose? If you miss a dose, take it as soon as you can. If it is almost time for your next dose, take only that dose. Do not take double or extra doses. Where should I keep my medicine? Keep out of the reach of children. Store at room temperature between 15 and 30 degrees C (59 and 86 degrees F). Keep container tightly closed. Throw away any unused medicine after the expiration date. What should I tell my health care provider before I take this medicine? They need to know if you have any of these conditions: asthma cigarette smoker drink more than 3 alcohol containing drinks a day heart disease or circulation problems such as heart failure or leg edema (fluid retention) high blood pressure kidney disease liver disease stomach bleeding or ulcers an unusual or allergic reaction to naproxen, aspirin, other NSAIDs, other medicines, foods, dyes, or preservatives or trying to get breast-feeding What should I watch for while using this medicine? Tell your doctor or health primary care pediatrician if your pain does not get better. Talk to your doctor before taking another medicine for pain. Do not treat yourself. This medicine does not prevent heart attack or stroke. In fact, this medicine may increase the chance of a heart attack or stroke. The chance may increase with longer use of this medicine and in people who have heart disease. If you take aspirin to prevent heart attack or stroke, talk with your doctor or health primary care pediatrician. Do not take other medicines that contain aspirin, ibuprofen, or naproxen with this medicine. Side effects such as stomach upset, nausea, or ulcers may be more likely to occur. Many medicines available without a prescription should not be taken with this medicine. This medicine can cause ulcers and bleeding in the stomach and intestines at any time during treatment. Do not smoke cigarettes or drink alcohol. These increase irritation to your stomach and can make it more susceptible to damage from this medicine. Ulcers and bleeding can happen without warning symptoms and can cause . You may get drowsy or dizzy. Do not drive, use machinery, or do anything that needs mental alertness until you know how this medicine affects you. Do not stand or sit up quickly, especially if you are an older patient. This reduces the risk of dizzy or fainting spells. This medicine can cause you to bleed more easily. Try to avoid damage to your teeth and gums when you brush or floss your teeth. You have been given the following additional information: Contusion, Soft Tissue Contusion, Hand Naproxen Sodium Oral tablet (Electronically signed by Yvette Pederson A.R.N.P. 08/14/2016 12:10)
--- NOTE | 2016-08-14 12:10 | ED DISCHARGE INSTRUCTIONS ---
Patient: CARLIE FRIEDMAN General Instructions [facility] VisitID: [id number] [address] [place] [address] 20y, F Registration Date/Time: 08/13/2016 Single contusion with soft tissue hematoma to the left hand.No skin abrasion. INSTRUCTIONS Warnings: GENERAL WARNINGS: Return or contact your physician immediately if your condition worsens or changes unexpectedly, if not improving as expected, or if other problems arise. Specifically return if problem worsens. Prescription Medications: Naproxen 500 mg tablets: take 1 orally every 12 hours as needed for pain. Dispense twenty (20). No refills. Follow-up: Follow up with your doctor in about one week as needed. Call for an appointment. Summary of care provided to patient. Understanding of the discharge instructions verbalized by patient. ADDITIONAL INFORMATION Contusion,Soft Tissue You have a CONTUSION, which is a bruise with swelling and some bleeding under the skin. There are no broken bones. This injury takes a few days to a few weeks to heal. Home Care: 1) Keep the injured part elevated to reduce pain and swelling. This is especially important during the first 48 hours. 2) Make an ice pack (ice cubes in a plastic bag, wrapped in a towel) and apply for 20 minutes every 1-2 hours the first day. Continue this 3-4 times a day until the pain and swelling goes away. 3) You may use acetaminophen (Tylenol) or ibuprofen (Motrin, Advil) to control pain, unless another pain medicine was prescribed. [ NOTE : If you have chronic liver or kidney disease or ever had a stomach ulcer or GI bleeding, talk with your doctor before using these medicines.] Follow Up with your doctor or this facility if you are not improving within the next THREE days. [NOTE: If X-rays were taken, they will be reviewed by a radiologist. You will be notified of any new findings that may affect your care.] Get Prompt Medical Attention if any of the following occur: -- Pain or swelling increases -- Injured arm or leg becomes cold, blue, numb or tingly -- Redness, warmth or drainage from the skin Contusion: Hand You have a CONTUSION of your hand. This causes local pain, swelling and sometimes bruising. There are no broken bones. This injury takes from a few days to a few weeks to heal. Home Care: 1) Keep your arm elevated to reduce pain and swelling. This is very important during the first 48 hours. 2) Apply an ice pack (ice cubes in a plastic bag, wrapped in a towel) over the injured area for 20 minutes every 1-2 hours the first day. You should continue with ice packs 3-4 times a day for the next two days. Continue the use of ice packs for relief of pain and swelling as needed. 3) You may use acetaminophen (Tylenol) or ibuprofen (Motrin, Advil) to control pain, unless another pain medicine was prescribed. [ NOTE : If you have chronic liver or kidney disease or ever had a stomach ulcer or GI bleeding, talk with your doctor before using these medicines.] Follow Up with your doctor or this facility if you are not starting to improve within the next THREE days. [NOTE: If X-rays were taken, they will be reviewed by a radiologist. You will be notified of any new findings that may affect your care.] Get Prompt Medical Attention if any of the following occur: -- Pain or swelling increases -- Redness, warmth or drainage -- Hand or fingers becomes cold, blue, numb or tingly Naproxen Sodium Oral tablet What is this medicine? NAPROXEN (na PROX en) is a non-steroidal anti-inflammatory drug (NSAID). It is used to reduce swelling and to treat pain. This medicine may be used for dental pain, headache, or painful monthly periods. It is also used for painful joint and muscular problems such as arthritis, tendinitis, bursitis, and gout. How should I use this medicine? Take this medicine by mouth with a glass of water. Follow the directions on the prescription label. Take it with food if your stomach gets upset. Try to not lie down for at least 10 minutes after you take it. Take your medicine at regular intervals. Do not take your medicine more often than directed. Long-term, continuous use may increase the risk of heart attack or stroke. A special MedGuide will be given to you by the pharmacist with each prescription and refill. Be sure to read this information carefully each time. Talk to your stone derrickman and rigger regarding the use of this medicine in children. Special care may be needed. What side effects may I notice from receiving this medicine? Side effects that you should report to your doctor or health lawn caretaker as soon as possible: black or bloody stools, blood in the urine or vomit blurred vision chest pain difficulty breathing or wheezing nausea or vomiting severe stomach pain skin rash, skin redness, blistering or peeling skin, hives, or itching slurred speech or weakness on one side of the body swelling of eyelids, throat, lips unexplained weight gain or swelling unusually weak or tired yellowing of eyes or skin Side effects that usually do not require medical attention (report to your doctor or health lawn caretaker if they continue or are bothersome): constipation headache heartburn What may interact with this medicine? alcohol aspirin cidofovir diuretics lithium methotrexate other drugs for inflammation like ketorolac or prednisone pemetrexed probenecid warfarin What if I miss a dose? If you miss a dose, take it as soon as you can. If it is almost time for your next dose, take only that dose. Do not take double or extra doses. Where should I keep my medicine? Keep out of the reach of children. Store at room temperature between 15 and 30 degrees C (59 and 86 degrees F). Keep container tightly closed. Throw away any unused medicine after the expiration date. What should I tell my health care provider before I take this medicine? They need to know if you have any of these conditions: asthma cigarette smoker drink more than 3 alcohol containing drinks a day heart disease or circulation problems such as heart failure or leg edema (fluid retention) high blood pressure kidney disease liver disease stomach bleeding or ulcers an unusual or allergic reaction to naproxen, aspirin, other NSAIDs, other medicines, foods, dyes, or preservatives or trying to get breast-feeding What should I watch for while using this medicine? Tell your doctor or health lawn caretaker if your pain does not get better. Talk to your doctor before taking another medicine for pain. Do not treat yourself. This medicine does not prevent heart attack or stroke. In fact, this medicine may increase the chance of a heart attack or stroke. The chance may increase with longer use of this medicine and in people who have heart disease. If you take aspirin to prevent heart attack or stroke, talk with your doctor or health lawn caretaker. Do not take other medicines that contain aspirin, ibuprofen, or naproxen with this medicine. Side effects such as stomach upset, nausea, or ulcers may be more likely to occur. Many medicines available without a prescription should not be taken with this medicine. This medicine can cause ulcers and bleeding in the stomach and intestines at any time during treatment. Do not smoke cigarettes or drink alcohol. These increase irritation to your stomach and can make it more susceptible to damage from this medicine. Ulcers and bleeding can happen without warning symptoms and can cause . You may get drowsy or dizzy. Do not drive, use machinery, or do anything that needs mental alertness until you know how this medicine affects you. Do not stand or sit up quickly, especially if you are an older patient. This reduces the risk of dizzy or fainting spells. This medicine can cause you to bleed more easily. Try to avoid damage to your teeth and gums when you brush or floss your teeth. You have been given the following additional information: Contusion, Soft Tissue Contusion, Hand Naproxen Sodium Oral tablet (Electronically signed by Yvette Pederson A.R.N.P. 08/14/2016 12:10)
== END 2016-08-13 23:16 | disposition home or self-care (01) ==
LOC: ED SRH 21:50
DX: S60.222A Contusion of left hand, initial encounter (principal); X50.1XXA Overexertion from prolonged static or awkward postures, initial encounter; Y93.72 Activity, wrestling; Y92.009 Unspecified place in unspecified non-institutional (private) residence as the place of occurrence of the external cause; Z72.0 Tobacco use